=== PATIENT | female | born 1990 | race Caucasian/White ===

== ENCOUNTER 2018-11-15 18:29 | Emergency (ER) | payer BC ==
[~2018-11-15] VITALS: Ht 165.1 cm; Wt 71.2 kg
--- NOTE | 2018-11-15 18:40 | NUR ---
ED Nurse Note: Pt came in from home 21 week due to RLQ abdominal pain that radiates to the back x 2 dayd, pain 6/10 madelin, come-and-go. Also c/o more urination frequency. AOx4, VSS. Will cont to monitor.
--- NOTE | 2018-11-15 18:45 | NUR ---
ED Nurse Note: Urine collected and sent to lab.
--- NOTE | 2018-11-15 18:59 | Emergency Room Report ---
History of Present Illness General Chief Complaint: Abdominal Pain Source: Patient Present Illness HPI 28-year-old female presents to the emergency department complaining of 6 out of 10 in severity lower right-sided abdominal pain with radiation towards the back since 3 PM today. Patient reports she had milder episode yesterday which resolved on its own after approximately one hour. Patient reports that she is 21 weeks . She is she has not been having any complications during her she just had a normal ultrasound performed 3 days ago. Bleeding, vaginal discharge, cramping/contractions, nausea, vomiting, constipation or diarrhea. Patient does report urinary frequency she denies dysuria or hematuria. She denies fevers, chills, recent travel or ill contacts. Patient denies trauma or fall and she denies strenuous activities. Patient states that when she is standing or walking she feels the pain and if she is sitting it provides relief or if she applies pressure to the area where she is experiencing the painful sensation. pt. with hx of Lupus. Allergies: Coded Allergies: No Known Allergies (Unverified , 11/15/18) Patient History Past Medical History: see triage record Past Surgical History: none Pertinent Family History: none Last Menstrual Period: July 04 Now: Yes : 1 Para: 1 Reviewed Nursing Documentation: PMH: Agreed; PSxH: Agreed Nursing Documentation-PMH Past Medical History: No Stated History Review of Systems All Other Systems: negative except mentioned in HPI Physical Exam Vital Signs Date Time Temp Pulse Resp B/P (MAP) Pulse Ox O2 Delivery O2 Flow Rate FiO2 11/15/18 18:31 98.4 71 18 111/71 (84) 100 Room Air Sp02 EP Interpretation: reviewed, normal General Appearance: no apparent distress, alert, GCS 15, non-toxic Head: normocephalic, atraumatic Eyes: bilateral eye normal inspection, bilateral eye PERRL ENT: hearing grossly normal, normal voice Neck: full range of motion Respiratory: lungs clear, normal breath sounds, speaking full sentences Cardiovascular #1: regular rate, rhythm Gastrointestinal: normal bowel sounds, non tender, soft, other - gravid Rectal: deferred Genitourinary: normal inspection, no CVA tenderness Musculoskeletal: back normal, gait/station normal, normal range of motion, non- tender Neurologic: alert, oriented x3, responsive, motor strength/tone normal, sensory intact, speech normal, grossly normal Psychiatric: judgement/insight normal Skin: normal color, no rash, warm/dry, well hydrated Lymphatic: no adenopathy Medical Decision Making PA Attestation Dr. Berrios is my supervising Physician whom patient management has been discussed with. Diagnostic Impression: Primary Impression: Abdominal pain during in second trimester Additional Impression: Pain of round ligament during ER Course 28-year-old female presents to the emergency department complaining of 6 out of 10 in severity lower right-sided abdominal pain with radiation towards the back since 3 PM today. Patient reports she had milder episode yesterday which resolved on its own after approximately one hour. Patient reports that she is 21 weeks . She is she has not been having any complications during her she just had a normal ultrasound performed 3 days ago. Bleeding, vaginal discharge, cramping/contractions, nausea, vomiting, constipation or diarrhea. Patient does report urinary frequency she denies dysuria or hematuria. She denies fevers, chills, recent travel or ill contacts. Patient denies trauma or fall and she denies strenuous activities. Patient states that when she is standing or walking she feels the pain and if she is sitting it provides relief or if she applies pressure to the area where she is experiencing the painful sensation. pt. with hx of Lupus. Ddx considered but are not limited to Diverticulitis, acute appy, diarrhea,UC, PUD, GE, pancreatitis, gallstone, ovarian torsion, ectopic , PID tubo-ovarian abscess. Vital signs: are WNL, pt. is afebrile H&PE are most consistent with possible round ligament pain. ORDERS: -CBC, CMP, LIPASE: Unremarkable/ WNL -UA: Unremarkable -US OB: IUP with HR in the 160's, cervix is long and closed, no free fluid. unable to visualize the ovaries. pt. did not have discomfort during US exam. ED INTERVENTIONS: - Pt. declines pain medication at this time. -D/w pt. results of lab work and imaging studies. Pt. has appt. on with her OBGYN. pt. given strict ED return precautions DISCHARGE: At this time pt. is stable for d/c to home. Will provide printed patient care instructions, and any necessary prescriptions. Care plan and follow up instructions have been discussed with the patient prior to discharge. Labs Test 11/15/18 18:30 11/15/18 19:40 Urine Color Pale yellow Urine Appearance Clear Urine pH 6.5 (4.5-8.0) Urine Specific [place] 1.005 (1.005-1.035) Urine Protein Negative (NEGATIVE) Urine Glucose (UA) Negative (NEGATIVE) Urine Ketones 1+ (NEGATIVE) Urine Blood Negative (NEGATIVE) Urine Nitrite Negative (NEGATIVE) Urine Bilirubin Negative (NEGATIVE) Urine Urobilinogen Normal MG/DL (0.0-1.0) Urine Leukocyte Esterase Negative (NEGATIVE) White Blood Count 11.8 K/UL (4.8-10.8) Red Blood Count 3.61 M/UL (4.20-5.40) Hemoglobin 11.7 G/DL (12.0-16.0) Hematocrit 31.2 % (37.0-47.0) Mean Corpuscular Volume 86 FL (80-99) Mean Corpuscular Hemoglobin 32.3 PG (27.0-31.0) Mean Corpuscular Hemoglobin Concent 37.4 G/DL (32.0-36.0) Red Cell Distribution Width 11.1 % (11.6-14.8) Platelet Count 225 K/UL (150-450) Mean Platelet Volume 6.5 FL (6.5-10.1) Neutrophils (%) (Auto) 77.2 % (45.0-75.0) Lymphocytes (%) (Auto) 16.3 % (20.0-45.0) Monocytes (%) (Auto) 5.0 % (1.0-10.0) Eosinophils (%) (Auto) 0.8 % (0.0-3.0) Basophils (%) (Auto) 0.7 % (0.0-2.0) Sodium Level 137 MMOL/L (136-145) Potassium Level 3.6 MMOL/L (3.5-5.1) Chloride Level 103 MMOL/L (98-107) Carbon Dioxide Level 27 MMOL/L (21-32) Anion Gap 7 mmol/L (5-15) Blood Urea Nitrogen 5 mg/dL (7-18) Creatinine 0.5 MG/DL (0.55-1.30) Estimat Glomerular Filtration Rate > 60 mL/min (>60) Glucose Level 103 MG/DL (74-106) Calcium Level 9.2 MG/DL (8.5-10.1) Total Bilirubin 0.2 MG/DL (0.2-1.0) Aspartate Amino Transf (AST/SGOT) 14 U/L (15-37) Alanine Aminotransferase (ALT/SGPT) 18 U/L (12-78) Alkaline Phosphatase 62 U/L (46-116) Total Protein 6.9 G/DL (6.4-8.2) Albumin 3.5 G/DL (3.4-5.0) Globulin 3.4 g/dL Albumin/Globulin Ratio 1.0 (1.0-2.7) Lipase 109 U/L (73-393) CT/MRI/US Diagnostic Results CT/MRI/US Diagnostic Results : Imaging Test Ordered: US OB complete Impression IUP with HR in the 160's, cervix is long and closed, no free fluid. unable to visualize the ovaries. pt. did not have discomfort during US exam. --- Per orthophoto tech/draftsman verbal report. Last Vital Signs Date Time Temp Pulse Resp B/P (MAP) Pulse Ox O2 Delivery O2 Flow Rate FiO2 11/15/18 18:37 71 18 Room Air 11/15/18 18:31 98.4 111/71 (84) 100 Status: improved Disposition: HOME, SELF-CARE Condition: Stable Scripts Acetaminophen* (TYLENOL EXTRA STRENGTH*) 500 Mg Tablet 500 MG ORAL Q6H, #30 TAB 0 Refills Prov: Humaira Mares 11/15/18 Patient Instructions: Abdominal Pain During Additional Instructions: Take medications as directed. Follow up with a OBGYN within 3 days, even if your symptoms have resolved. Return sooner to ED if new symptoms occur, or current symptoms become worse. - Please note that this Emergency Department Report was dictated using [employer] technology software, occasionally this can lead to erroneous entry secondary to interpretation by the dictation equipment. Humaira Mares Nov 15, 2018 18:59
[2018-11-15 19:04] LABS: APPEARANCE,URINE CLEAR; BILIRUBIN, URINE NEGATIVE (NEGATIVE); COLOR,URINE PALE YELLOW; GLUCOSE, URINE (UA) NEGATIVE (NEGATIVE); KETONES,URINE 1+ (NEGATIVE); LEUKOCYTE ESTERASE ,URINE NEGATIVE (NEGATIVE); NITRITE,URINE NEGATIVE (NEGATIVE); PH,URINE 6.5 (4.5-8.0); PROTEIN,URINE NEGATIVE (NEGATIVE); UROBILINOGEN,URINE NORMAL MG/DL (0.0-1.0)
--- NOTE | 2018-11-15 19:20 | NUR ---
ED Nurse Note: RECIEVED REPORT TO RESUME CARE, PT SITTING ON SIDE OF BED WITH SPOUSE, LABS DRAWN AND SENT, WILL RESUME CARE ORDERED AND CONTINUE TO CLOSELY MONITOR, PT CURRENTLY HAS PAINA T 2/10, NO BLEEDING OR OTHER COMPLAITNS O
[2018-11-15 20:06] LABS: BASOPHILS % (AUTO) 0.7 % (0.0-2.0); EOSINOPHILS % (AUTO) 0.8 % (0.0-3.0); HEMATOCRIT 31.2 % (37.0-47.0); HEMOGLOBIN 11.7 G/DL (12.0-16.0); LYMPHOCYTES % (AUTO) 16.3 % (20.0-45.0); MEAN CORPUSCULAR VOLUME 86 FL (80-99); NEUTROPHILS % (AUTO) 77.2 % (45.0-75.0); PLATELET COUNT 225 K/UL (150-450); RED BLOOD COUNT 3.61 M/UL (4.20-5.40); RED CELL DISTRIBUTION WIDTH 11.1 % (11.6-14.8); WHITE BLOOD COUNT 11.8 K/UL (4.8-10.8)
[2018-11-15 20:10] LABS: ANION GAP 7 mmol/L (5-15); BLOOD UREA NITROGEN 5 mg/dL (7-18); CALCIUM 9.2 MG/DL (8.5-10.1); CARBON DIOXIDE 27 MMOL/L (21-32); CHLORIDE 103 MMOL/L (98-107); CREATININE 0.5 MG/DL (0.55-1.30); POTASSIUM 3.6 MMOL/L (3.5-5.1); SODIUM 137 MMOL/L (136-145)
[2018-11-15 20:15] LABS: ALANINE AMINOTRANSFERASE 18 U/L (12-78); ALBUMIN 3.5 G/DL (3.4-5.0); ALKALINE PHOSPHATASE 62 U/L (46-116); ASPARTATE AMINO TRANSFERASE 14 U/L (15-37); BILIRUBIN,TOTAL 0.2 MG/DL (0.2-1.0)
--- NOTE | 2018-11-15 20:50 | NUR ---
ED Nurse Note: PT IS CURRENTLY BEING WALKED DOWN TO ULTRASOUND DEPARTEMENT BY DIRECTOR DATA PROCESSING, PT IS AWAKE AND ALERT, NAD NOTED.
[2018-11-15 21:35] VITALS: BP 117/64
--- NOTE | 2018-11-15 21:35 | NUR ---
ED Nurse Note: PT RETURNED FROM IMAGING, NO CHANGES OR DISTRESS NOTED, BEING D/C TO HOME, AWAKE, ALERT AND AMBULATORY, WITH SPOUSE, JACI AT 07/26, NO BLEEDING, NO CP, NO SOB, PT GIVEN F/U INFO AND AFTER CARE INSTRUCTIONS AND RE-VERBALIZES PROPER MEDICATION ADMINISTRATION AND WHEN RETURN NEEDED, NAD NOTED DURING D/C TO HOME.
[2018-11-15] MEDS ORDERED: TYLENOL EXTRA500 MG ORAL (21:40)
[2018-11-15 21:50] VITALS: BP 117/64
--- NOTE | 2018-11-16 09:31 | Diagnostic Imaging Report ---
Indication: Pelvic pain. 22 week Technique: Grayscale and duplex Doppler imaging of the pelvis performed utilizing a transabdominal scan and endovaginal scan. Comparison: None Findings: Emergent OB ultrasound performed for abdominal pain. There are no prior studies for comparison. Single living intrauterine demonstrated sonographic criteria estimating 22 week 0 days gestational age. presentation is vertex. heart motion demonstrated. A full anatomic survey of the fetus was not performed. The measurement and sonographic estimation of gestational age is based on the following: Biparietal diameter 5.55 cm, 22 weeks 6 days. Head circumference 19.9 cm, 22 weeks. Abdominal circumference 16.7 cm, 21 weeks 5 days. Femur length 3.7 cm 21 weeks 5 days. Placenta is posterior and unremarkable. There is no placenta previa identified. Vertex presentation. The cervix is closed and measures 4 cm in length. Amniotic fluid appears appropriate for gestational age. IMPRESSION: No acute findings appreciated. Single living intrauterine 22 weeks gestational age. Full anatomic survey not performed on this study. Suggest follow-up more comprehensive ultrasound of the fetus such as a level 2 ultrasound as clinically warranted. Note: A negative ultrasound evaluation at this stage does not insure well-being or predict a positive outcome for the . monitoring including a nonstress test may be needed and clinical evaluation by HYDRO GENERATION SUPERVISOR is highly recommended. [facility] has communicated the preliminary results to the Emergency Department. Their findings are largely concordant with this report.
== END 2018-11-15 21:50 | disposition home or self-care (01) ==
LOC: EMR 19:10
DX: O26.92 Pregnancy related conditions, unspecified, second trimester (principal); R10.9 Unspecified abdominal pain; Z3A.21 21 weeks gestation of pregnancy
CPT/HCPCS: 36415; 76805; 80053; 81003; 83690; 85025; 99284